=== PATIENT | female | born 1945 | race Caucasian/White ===

== ENCOUNTER 2019-01-22 12:34 | Emergency (ER) | payer MEDICARE, OTHER ==
[2019-01-22 13:07] VITALS: BP 183/81; PULSE 60
--- NOTE | 2019-01-22 13:33 | EDM.PDOC ---
ED HPI GENERAL MEDICAL PROBLEM - General Chief Complaint: General Stated Complaint: HIGH BP Time Seen by Provider: 01/22/19 13:15 Source of Information: Reports: Patient History Limitations: Reports: No Limitations - History of Present Illness INITIAL COMMENTS - FREE TEXT/NARRATIVE: 73-year-old female checked her blood pressure at the store today and it was 194 systolic, she feels fine but it scared her so they called the clinic and they told her to come to the emergency room. She has no symptoms. She has a blood pressure machine at home and normally her blood pressure is fine. She did have her in the emergency room 2 days ago and has been stressed. She has not missed any medication. She's been on 50 mg of atenolol for many years. Onset: Unknown/Unsure Associated Symptoms: Reports: No Other Symptoms - Related Data Allergies Allergy/AdvReac Type Severity Reaction Status Date / Time pollen extracts Allergy Cannot Verified 02/01/16 07:24 Remember Home Meds: Home Meds Citalopram [Citalopram HBr] 40 mg PO DAILY 01/30/16 [History] Atenolol 50 mg PO DAILY 01/22/19 [History] Latanoprost 1 drop EYEBOTH BEDTIME 01/22/19 [History] Past Medical History HEENT History: Reports: Allergic Rhinitis, Impaired Vision Cardiovascular History: Reports: Hypertension Gastrointestinal History: Reports: None Genitourinary History: Reports: None [employer] History: Reports: Musculoskeletal History: Reports: Fracture, Osteoarthritis Other Musculoskeletal History: right shoulder FX Endocrine/Metabolic History: Reports: Obesity/BMI 30+ - Infectious Disease History Infectious Disease History: Reports: Chicken Pox, Measles, Mumps - Past Surgical History GI Surgical History: Reports: Colonoscopy Female Surgical History: Reports: Tubal Ligation Musculoskeletal Surgical History: Reports: Knee Replacement Social & Family History - Tobacco Use Smoking Status *Q: Never Smoker - Caffeine Use Caffeine Use: Reports: Coffee - Alcohol Use Days Per Week of Alcohol Use: 7 Number of Drinks Per Day: 3 Total Drinks Per Week: 21 - Recreational Drug Use Recreational Drug Use: No ED ROS GENERAL - Review of Systems Review Of Systems: See Below Constitutional: Denies: Fever, Chills Respiratory: Reports: No Symptoms Cardiovascular: Reports: No Symptoms GI/Abdominal: Reports: No Symptoms : Reports: No Symptoms Skin: Reports: No Symptoms Neurological: Denies: Headache ED EXAM, GENERAL - Physical Exam Exam: See Below Exam Limited By: No Limitations General Appearance: Alert, No Apparent Distress Respiratory/Chest: No Respiratory Distress, Lungs Clear Cardiovascular: Regular Rate, Rhythm Extremities: No: Pedal Edema Neurological: Alert, Oriented Psychiatric: Normal Affect, Normal Mood Skin Exam: Warm, Dry Course - Vital Signs Last Recorded V/S: Last Vital Signs Temp 96.1 F 01/22/19 13:05 Pulse 60 01/22/19 13:05 Resp 14 01/22/19 13:05 BP 183/81 H 01/22/19 13:05 Pulse Ox 92 L 01/22/19 13:05 - Re-Assessments/Exams Free Text/Narrative Re-Assessment/Exam: 01/22/19 13:31 Blood pressure is now 183/81. It should continue to normalize as the day goes on. Because she is completely asymptomatic, I reassured her that if she just continues to take her regular medication, avoids extra sodium intake that she should do fine. She can return if symptoms develop or her blood pressures persistently elevated over the next several days. Departure - Departure Time of Disposition: 13:38 Disposition: Home, Self-Care 01 Clinical Impression: Essential hypertension - Discharge Information Instructions: Hypertension Referrals: Gurvinder Horan NP [Primary Care Provider] - Forms: ED Department Discharge Care Plan Goals: Continue your current medications, avoid any extra salt intake and consider talking to your doctor if you're blood pressure remains elevated over the next several days. Return to the emergency room if you become symptomatic such as headache, chest pressure or shortness of breath.
== END 2019-01-22 13:38 | disposition home or self-care (01) ==
LOC: JP.ED 12:34
DX: I10 Essential (primary) hypertension (principal); Z79.899 Other long term (current) drug therapy; Z91.048 Other nonmedicinal substance allergy status
CPT/HCPCS: 99282

== ENCOUNTER 2023-03-13 07:38 | Inpatient (IN) | payer MEDICARE, OTHER ==
[2023-03-13] MEDS ORDERED: Sodium Chloride 0.9% 10 ML Syringe FLUSH PRN ×2 (08:55→18:42)
[2023-03-13] MEDS ORDERED: Lactated Ringers 1,000 ML IV ONE (08:55)
[2023-03-13] MEDS ORDERED: Ondansetron 4 MG/2 ML SDV IVPUSH ONE (08:57)
[2023-03-13 09:11] LABS: BASOPHILS ABSOLUTE AUTO 0.03 K/uL (0.00-0.10); BASOPHILS PERCENT AUTO 0.4 % (0.1-1.3); HEMATOCRIT 44.6 % (34.3-46.0); HEMOGLOBIN 15.7 g/dL (11.2-15.5); IMMATURE GRAN ABSOLUTE AUTO 0.03 K/uL (0.00-0.23); IMMATURE GRAN PERCENT AUTO 0.4 % (0.0-0.7); LYMPHOCYTES ABSOLUTE AUTO 1.01 K/uL (0.8-3.3); LYMPHOCYTES PERCENT AUTO 12.1 % (11.4-47.7); MEAN CORPUSCULAR HEMOGLOBIN 31.8 pg (31.6-35.5); MEAN CORPUSCULAR HGB CONC 35.2 g/dL (31.6-35.5); MEAN CORPUSCULAR VOLUME 90.5 fL (81.4-99.0); MONOCYTES ABSOLUTE AUTO 1.34 K/uL (0.20-0.90); NEUTROPHILS ABSOLUTE AUTO 5.97 K/uL (1.0-7.6); NEUTROPHILS PERCENT AUTO 71.1 % (40.0-78.1); PLATELET COUNT,PLT 120 K/uL (130-375); RED BLOOD CELL COUNT 4.93 M/uL (3.77-5.24); WHITE BLOOD CELL COUNT,WBC 8.4 K/uL (3.2-11.0)
[2023-03-13 09:32] LABS: A/G RATIO 0.9 (1.2-2.2); ALANINE AMINOTRANSFERASE,ALT 23 U/L (12-78); ALBUMIN 3.6 g/dL (3.4-5.0); ALKALINE PHOSPHATASE 153 U/L (46-116); ASPARTATE AMNIOTRANSFERASE,AST 66 U/L (15-37); BILIRUBIN TOTAL 1.2 mg/dL (0.2-1.0); BLOOD UREA NITROGEN,BUN 10 mg/dL (7-18); CALCIUM 8.9 mg/dL (8.5-10.1); CARBON DIOXIDE,CO2 27 mmol/L (21-32); CHLORIDE,CL 92 mmol/L (100-108); CREATININE 0.6 mg/dL (0.6-1.0); EST CRCL DRUG DOSING (CG) 55.51 mL/min; ESTIMATED GFR 92 mL/min (>60); GLUCOSE RANDOM 128 mg/dL (74-106); PROTEIN TOTAL,TP 7.6 g/dL (6.4-8.2); SODIUM,NA 130 mmol/L (140-148)
[2023-03-13 09:37] LABS: ANION GAP 13.9 mmol/L (5.0-14.0); POTASSIUM,K 2.9 mmol/L (3.6-5.2)
[2023-03-13] MEDS ORDERED: Potassium Chloride 20 MEQ in Premix Bag 1 BAG IV ONE (09:49)
[2023-03-13] MEDS ORDERED: Potassium Chloride 20 MEQ Tab.ER PO ONE ×2 (09:49→17:32)
[2023-03-13 09:55] LABS: CORONAVIRUS COVID-19 NAA NEGATIVE (NEGATIVE); INFLUENZA A NAA NEGATIVE (NEGATIVE); INFLUENZA B NAA NEGATIVE (NEGATIVE); RESPIRATORY SYNCYTIAL VIR NAA NEGATIVE (NEGATIVE)
[2023-03-13] MEDS ORDERED: Ketorolac 30 MG/ML SDV IVPUSH ONE (10:21)
[2023-03-13] MEDS ORDERED: Furosemide 40 MG/4 ML VIAL IVPUSH ONE (12:18)
[2023-03-13] MEDS ORDERED: fentaNYL 100 MCG/2 ML SDV IVPUSH ONE (15:00)
[2023-03-13] MEDS ORDERED: Sodium Chloride 0.9% 10 ML Syringe FLUSH ONE (15:01)
[2023-03-13] MEDS ORDERED: Iopamidol 755 Mg/ML 100 ML Bottle IV SCH (15:15)
[2023-03-13] MEDS ORDERED: Sodium Chloride 0.9% 75 ML IV SCH (15:15)
[2023-03-13] MEDS ORDERED: Ondansetron 4 MG/2 ML SDV IV PRN (18:42)
[2023-03-13] MEDS ORDERED: Enoxaparin 40 MG/0.4 ML Syringe SUBCUT SCH (18:42)
[2023-03-13] MEDS ORDERED: Polyethylene Glycol 3350 Powder 17 GM Packet PO PRN (18:42)
[2023-03-13] MEDS ORDERED: Albuterol 0.083% 2.5 MG/3 ML Neb Soln NEB PRN (18:42)
[2023-03-13] MEDS ORDERED: Acetaminophen 325 MG Tab PO PRN (18:42)
[2023-03-13] MEDS: Pantoprazole 40 MG Vial IVPUSH SCH (19:24)
[2023-03-13] MEDS: Latanoprost 0.005% Ophth Soln 2.5 ML Bottle EYEBOTH SCH (20:00)
[2023-03-14] MEDS ORDERED: Potassium Chloride 10 MEQ in Premix Bag 1 BAG IV ONE ×2 (02:35→06:00)
[2023-03-14 04:46] LABS: HEMATOCRIT 41.8 % (34.3-46.0); HEMOGLOBIN 14.5 g/dL (11.2-15.5); MEAN CORPUSCULAR HEMOGLOBIN 31.8 pg (31.6-35.5); MEAN CORPUSCULAR HGB CONC 34.7 g/dL (31.6-35.5); MEAN CORPUSCULAR VOLUME 91.7 fL (81.4-99.0); RED BLOOD CELL COUNT 4.56 M/uL (3.77-5.24); WHITE BLOOD CELL COUNT,WBC 6.4 K/uL (3.2-11.0)
[2023-03-14 05:20] LABS: A/G RATIO 0.9 (1.2-2.2); ALANINE AMINOTRANSFERASE,ALT 21 U/L (12-78); ALBUMIN 3.1 g/dL (3.4-5.0); ALKALINE PHOSPHATASE 127 U/L (46-116); ANION GAP 13.2 mmol/L (5.0-14.0); ASPARTATE AMNIOTRANSFERASE,AST 58 U/L (15-37); BILIRUBIN TOTAL 1.1 mg/dL (0.2-1.0); BLOOD UREA NITROGEN,BUN 11 mg/dL (7-18); CALCIUM 8.2 mg/dL (8.5-10.1); CARBON DIOXIDE,CO2 26 mmol/L (21-32); CHLORIDE,CL 95 mmol/L (100-108); CREATININE 0.6 mg/dL (0.6-1.0); EST CRCL DRUG DOSING (CG) 55.51 mL/min; ESTIMATED GFR 92 mL/min (>60); GLUCOSE RANDOM 106 mg/dL (74-106); MAGNESIUM 1.3 mg/dL (1.8-2.4); POTASSIUM,K 3.2 mmol/L (3.6-5.2); PROTEIN TOTAL,TP 6.5 g/dL (6.4-8.2); SODIUM,NA 131 mmol/L (140-148)
[2023-03-14 05:21] LABS: TROPONIN I HIGH SENSITIVITY 188.9 pg/mL (<=60.3)
[2023-03-14] MEDS ORDERED: Potassium Chloride 20 MEQ Tab.ER PO ONE ×2 (06:40→12:00)
[2023-03-14] MEDS ORDERED: Magnesium Sulfate/Water 2 GM in Premix Bag 1 BAG IV ONE (07:00)
[2023-03-14] MEDS: Furosemide 20 MG/2 ML VIAL IVPUSH SCH ×2 (07:46→18:04)
[2023-03-14] MEDS: Magnesium Sulfate/Water 2 GM in Premix Bag 1 BAG IV SCH ×3 (08:34→21:01)
[2023-03-14] MEDS: amLODIPine 5 MG Tab PO SCH (09:58)
[2023-03-14] MEDS: Citalopram 20 MG Tab PO SCH (09:58)
[2023-03-14] MEDS: Magnesium Oxide 400 MG Tab PO SCH ×2 (09:58→21:00)
[2023-03-14] MEDS: Atenolol 25 MG Tab PO SCH (09:59)
[2023-03-14] MEDS: Pantoprazole 40 MG Vial IVPUSH SCH ×2 (09:59→21:00)
[2023-03-14] MEDS: Enoxaparin 40 MG/0.4 ML Syringe SUBCUT SCH (18:04)
[2023-03-14] MEDS: Latanoprost 0.005% Ophth Soln 2.5 ML Bottle EYEBOTH SCH (21:01)
[2023-03-15 05:34] LABS: CALCIUM 7.8 mg/dL (8.5-10.1); CREATININE 0.5 mg/dL (0.6-1.0); EST CRCL DRUG DOSING (CG) 66.61 mL/min
[2023-03-15 05:39] LABS: MAGNESIUM 2.6 mg/dL (1.8-2.4)
[2023-03-15] MEDS: Atenolol 25 MG Tab PO SCH (08:26)
[2023-03-15] MEDS: Citalopram 20 MG Tab PO SCH (08:26)
[2023-03-15] MEDS: Magnesium Oxide 400 MG Tab PO SCH ×2 (08:27→21:12)
[2023-03-15] MEDS: amLODIPine 5 MG Tab PO SCH (08:27)
[2023-03-15] MEDS: Furosemide 20 MG/2 ML VIAL IVPUSH SCH ×2 (08:27→19:43)
[2023-03-15] MEDS: Pantoprazole 40 MG Vial IVPUSH SCH ×2 (08:27→21:12)
[2023-03-15] MEDS ORDERED: Potassium Chloride 20 MEQ Tab.ER PO ONE (12:00)
[2023-03-15] MEDS: Enoxaparin 40 MG/0.4 ML Syringe SUBCUT SCH (17:34)
[2023-03-15] MEDS: Latanoprost 0.005% Ophth Soln 2.5 ML Bottle EYEBOTH SCH (21:12)
[2023-03-16 05:21] LABS: CREATININE 0.6 mg/dL (0.6-1.0); EST CRCL DRUG DOSING (CG) 55.51 mL/min
[2023-03-16 05:39] VITALS: BP 128/52
[2023-03-16] MEDS: Furosemide 20 MG/2 ML VIAL IVPUSH SCH (08:11)
[2023-03-16] MEDS: Atenolol 25 MG Tab PO SCH (08:11)
[2023-03-16] MEDS: Citalopram 20 MG Tab PO SCH (08:12)
[2023-03-16] MEDS: amLODIPine 5 MG Tab PO SCH (08:12)
[2023-03-16] MEDS: Pantoprazole 40 MG Vial IVPUSH SCH (08:12)
[2023-03-16] MEDS: Magnesium Oxide 400 MG Tab PO SCH (08:12)
[2023-03-16 08:13] VITALS: PULSE 82
== END 2023-03-16 11:30 | disposition home or self-care (01) | DRG 291 ==
LOC: JP.ED 07:38 → JP.MS 16:17
PROVIDERS: ADMIT Hospitalist; ATTEND Hospitalist
DX: I11.0 Hypertensive heart disease with heart failure (principal); I50.33 Acute on chronic diastolic (congestive) heart failure; J96.21 Acute and chronic respiratory failure with hypoxia; E87.1 Hypo-osmolality and hyponatremia; J98.11 Atelectasis; J44.9 Chronic obstructive pulmonary disease, unspecified; K74.60 Unspecified cirrhosis of liver; I50.9 Heart failure, unspecified; R09.02 Hypoxemia; E87.6 Hypokalemia; I27.20 Pulmonary hypertension, unspecified; K52.9 Noninfective gastroenteritis and colitis, unspecified; I07.1 Rheumatic tricuspid insufficiency; M19.90 Unspecified osteoarthritis, unspecified site; Z96.659 Presence of unspecified artificial knee joint; E86.0 Dehydration; Z91.048 Other nonmedicinal substance allergy status; Z87.81 Personal history of (healed) traumatic fracture; Z68.33 Body mass index [BMI] 33.0-33.9, adult; Z98.51 Tubal ligation status; Z20.822 Contact with and (suspected) exposure to COVID-19; E66.9 Obesity, unspecified; Z79.899 Other long term (current) drug therapy; Z87.891 Personal history of nicotine dependence
CPT/HCPCS: 0241U; 36415; 71045; 71045-26; 71275; 71275-26; 76700; 76700-26; 80048; 80053; 83735; 83880; 84132; 84484; 85025; 85027; 85379; 93005; 93010; 93306; 96361; 96365; 96366; 96375; 97110-GP; 97161-GP; 97530-GP; 99222; 99232; 99238; 99285; 99285-25; A9270-GY; C9113; J1650; J1885; J1940; J2405; J3010; J3475; J3480; J3490; J7120; Q9967